=== PATIENT | male | born 1970 | race Caucasian/White ===

== ENCOUNTER 2017-08-28 06:40 | Emergency (ER) | payer BC ==
[~2017-08-28] VITALS: Ht 170.2 cm; Wt 132.7 kg
[~2017-08-28 06:40] MED LIST: ALBUAER2 INH
[2017-08-28 06:44] VITALS: Ht 170.2 cm; Wt 132.7 kg
[2017-08-28] MEDS ORDERED: VNTHFA/IN INH (06:52)
[2017-08-28] MEDS ORDERED: KETOROLAC TROMETHAMINE 30 MG/ML VIAL IV STA (07:05)
[2017-08-28 07:12] VITALS: O2SAT 96
--- NOTE | 2017-08-28 07:19 | DIAGNOSTIC IMAGING REPORT ---
CHEST ONE VIEW PORTABLE CLINICAL HISTORY: Atypical chest pain COMPARISON STUDY: 06/04/2010 FINDINGS: The cardiac and mediastinal contours remain stable. There is no failure. There is no focal pulmonary consolidation. There are no pleural effusions. There is a linear opacity at left lung base consistent with subsegmental atelectasis.[ IMPRESSION: No active disease in the chest. Electronically signed by: Misael Bautista M.D. 08/28/2017 7:18 AM Dictated Date/Time: 08/28/2017 7:17 AM
[2017-08-28 07:29] LABS: BASO % 0.4 %; BASO ABS # 0.03 K/uL (0-0.2); COMPLETE YES; EOS % 3.1 %; HEMATOCRIT 45.9 % (42-52); IG% 0.6 %; LYMPH % 28.1 %; LYMPH ABS # 2.36 K/uL (1.2-3.4); MEAN CELL VOLUME 94.3 fL (80-100); MEAN CORPUSCULAR HEMOGLOBIN 30.8 pg (25-34); MEAN CORPUSCULAR HGB CONC 32.7 g/dl (32-36); NEUT % 61.8 %; PLATELET COUNT 247 K/uL (130-400); RED BLOOD COUNT 4.87 M/uL (4.7-6.1)
[2017-08-28 07:36] LABS: ALT/SGPT 49 U/L (12-78); BLOOD UREA NITROGEN 10 mg/dl (7-18); BUN/CREATININE RATIO 11.9 (10-20); CALCIUM 8.7 mg/dl (8.5-10.1); CARBON DIOXIDE 28 mmol/L (21-32); CHLORIDE 103 mmol/L (98-107); CREATININE 0.88 mg/dl (0.60-1.40); GLUCOSE 134 mg/dl (70-99); SODIUM 138 mmol/L (136-145)
[2017-08-28 07:41] LABS: ALKALINE PHOSPHATASE 72 U/L (45-117); AST/SGOT 19 U/L (15-37)
[2017-08-28] MEDS ORDERED: SODIUM CHLORIDE 0.9% 1000ML 1,000 ML IV STA (07:42)
[2017-08-28] MEDS ORDERED: GI COCKTAIL PO STA (07:48)
[2017-08-28] MEDS ORDERED: ALUMINUM/MAGNESIUM SUSP 30 ML UDC ONE (07:55)
[2017-08-28] MEDS ORDERED: LIDOCAINE HCL 2% VISC SOLN 20 ML UDC ONE (07:55)
--- NOTE | 2017-08-28 08:11 | EMERGENCY ROOM VISIT NOTE ---
History Report prepared by Rodrigue: Saritha Duque Under the Supervision of: Dr. Eliezer Raines M.D. First contact with patient: 06:52 Chief Complaint: CHEST PAIN Stated Complaint: LFT HAND ,DIARRHEA, SEVERE HEARTBURN History of Present Illness The patient is a 47 year old male who presents to the Emergency Room with complaints of intermittent chest pain that began two weeks ago. He currently rates his discomfort as a 5/10 in severity describing his pain as a heaviness. The patient states that the pain today began when he woke and it has been with him all morning. He denies the pain worsening with exertion but states that it does improve sometime with exertion. Symptoms improves with flexion of chest wall/internal rotation/adduction of arms to chest wall. Pain is worsened with extension of the chest wall or palpation of the anterior chest/sternum. The patient states that the pain comes with rest. He additionally reports a chest pain which is different then his current chest pain that he describes as a burning that only comes after eating. The patient states that today he has been feeling short of breath with his current pain which started at 5am. He states that breathing worsens his pain. The patient reports palpitations/ flutter in his chest as well. He states that he additionally has noticed aches and numbness to his bilateral hands and fingertips which improves with lifting his hands over his head. The patient states that he developed diarrhea this morning, noting four bouts of diarrhea. He denies diabetes, hypertension, hyperlipidemia, CAD, history of sudden at a young age, and smoking. Patient denies swelling of calves, recent trips, history of immobilization or recent surgery, prior history of DVT, hemoptysis, history of malignancy, history of smoking, or control/estrogen use. The patient denies headache, change in vision, fevers, nausea, vomiting, pain with urination, and melena. Source of History: patient Onset: two weeks ago Position: chest Symptom Intensity: 5/10 Quality: burning, other (heaviness) Timing: intermittent Modifying Factors (Worsening): rest, eating, breathing Associated Symptoms: + SOB, + numbness (biltaral hands) Review of Systems See HPI for pertinent positives & negatives. A total of 10 systems reviewed and were otherwise negative. Past Medical & Surgical Medical Problems: (1) Kidney stone (2) Tick bite Family History Patient reports no known family medical history. Social History Smoking Status: Never Smoker Alcohol Use: occasionally Drug Use: none Marital Status: Housing Status: lives with family Occupation Status: employed Current/Historical Medications Scheduled PRN Albuterol Hfa (Ventolin Hfa), 2 PUFFS INH Q6H PRN for SOB/Wheezing Allergies Coded Allergies: No Known Allergies (Unverified , 08/28/17) Physical Exam Vital Signs Date Time Temp Pulse Resp B/P (MAP) Pulse Ox O2 Delivery O2 Flow Rate FiO2 08/28/17 09:59 36.4 70 20 119/86 95 08/28/17 09:45 70 20 95 08/28/17 09:31 119/86 08/28/17 09:15 68 15 138/88 98 08/28/17 08:45 69 19 95 08/28/17 08:31 140/99 08/28/17 08:15 74 19 93 08/28/17 08:10 75 17 94 08/28/17 08:01 142/89 08/28/17 07:40 73 17 93 08/28/17 07:31 141/76 08/28/17 07:12 96 Room Air 08/28/17 07:11 96 Room Air 08/28/17 07:10 86 14 94 08/28/17 07:01 148/101 08/28/17 06:55 87 08/28/17 06:52 143/96 08/28/17 06:44 36.4 87 18 158/99 92 Room Air Physical Exam GENERAL: Sitting up in bed, alert, disheveled, well nourished, no distress, non- toxic EYE EXAM: normal conjunctiva. OROPHARYNX: no exudate, no erythema, lips, buccal mucosa, and tongue normal and mucous membranes are moist NECK: supple, no nuchal rigidity, no adenopathy, non-tender CHEST: Reproducible anterior chest wall pain, tracking to the left of the sternum/same as stated complaint. Worsen and improves with movement of upper extremities. LUNGS: Clear to auscultation. Normal chest wall mechanics HEART: no murmurs, S1 normal and S2 normal ABDOMEN: abdomen soft, non-tender, normo-active bowel sounds, no masses, no rebound or guarding. BACK: Back is symmetrical on inspection and there is no deformity, no midline tenderness, no CVA tenderness. SKIN: no rashes and no bruising UPPER EXTREMITIES: upper extremities are grossly normal. Radial pulses equal bilaterally LOWER EXTREMITIES: No pitting edema. Calves are equal bilaterally NEURO EXAM: Normal sensorium, cranial nerves II-XII grossly intact, normal speech, no gross weakness of arms, no gross weakness of legs. Medical Decision & Procedures ER Provider Diagnostic Interpretation: Radiology results as stated below per my review and the radiologist's interpretation: CHEST ONE VIEW PORTABLE CLINICAL HISTORY: Atypical chest pain COMPARISON STUDY: 06/04/2010 FINDINGS: The cardiac and mediastinal contours remain stable. There is no failure. There is no focal pulmonary consolidation. There are no pleural effusions. There is a linear opacity at left lung base consistent with subsegmental atelectasis.[ IMPRESSION: No active disease in the chest. Electronically signed by: Misael Bautista M.D. 08/28/2017 7:18 AM Dictated Date/Time: 08/28/2017 7:17 AM Laboratory Results 08/28/17 06:56 Red Blood Count 4.87, Mean Corpuscular Volume 94.3, Mean Corpuscular Hemoglobin 30.8, Mean Corpuscular Hemoglobin Concent 32.7, Mean Platelet Volume 10.0, Neutrophils (%) (Auto) 61.8, Lymphocytes (%) (Auto) 28.1, Monocytes (%) (Auto) 6.0, Eosinophils (%) (Auto) 3.1, Basophils (%) (Auto) 0.4, Neutrophils # (Auto) 5.20, Lymphocytes # (Auto) 2.36, Monocytes # (Auto) 0.50, Eosinophils # (Auto) 0.26, Basophils # (Auto) 0.03 08/28/17 06:56 Test 08/28/17 06:56 08/28/17 09:10 White Blood Count 8.40 K/uL (4.8-10.8) Red Blood Count 4.87 M/uL (4.7-6.1) Hemoglobin 15.0 g/dL (14.0-18.0) Hematocrit 45.9 % (42-52) Mean Corpuscular Volume 94.3 fL (80-100) Mean Corpuscular Hemoglobin 30.8 pg (25-34) Mean Corpuscular Hemoglobin Concent 32.7 g/dl (32-36) Platelet Count 247 K/uL (130-400) Mean Platelet Volume 10.0 fL (7.4-10.4) Neutrophils (%) (Auto) 61.8 % Lymphocytes (%) (Auto) 28.1 % Monocytes (%) (Auto) 6.0 % Eosinophils (%) (Auto) 3.1 % Basophils (%) (Auto) 0.4 % Neutrophils # (Auto) 5.20 K/uL (1.4-6.5) Lymphocytes # (Auto) 2.36 K/uL (1.2-3.4) Monocytes # (Auto) 0.50 K/uL (0.11-0.59) Eosinophils # (Auto) 0.26 K/uL (0-0.5) Basophils # (Auto) 0.03 K/uL (0-0.2) RDW Standard Deviation 45.8 fL (36.4-46.3) RDW Coefficient of Variation 13.3 % (11.5-14.5) Immature Granulocyte % (Auto) 0.6 % Immature Granulocyte # (Auto) 0.05 K/uL (0.00-0.02) D-Dimer 210 ug/L FEU (0-500) Anion Gap 7.0 mmol/L (3-11) Est Creatinine Clear Calc Drug Dose 139.1 ml/min Estimated GFR () 120.2 Estimated GFR (Non- 103.7 BUN/Creatinine Ratio 11.9 (10-20) Calcium Level 8.7 mg/dl (8.5-10.1) Total Bilirubin 0.4 mg/dl (0.2-1) Direct Bilirubin < 0.1 mg/dl (0-0.2) Aspartate Amino Transf (AST/SGOT) 19 U/L (15-37) Alanine Aminotransferase (ALT/SGPT) 49 U/L (12-78) Alkaline Phosphatase 72 U/L (45-117) Total Protein 7.6 gm/dl (6.4-8.2) Albumin 3.6 gm/dl (3.4-5.0) Lipase 109 U/L (73-393) Troponin I < 0.015 ng/ml (0-0.045) Laboratory results per my review. Medications Administered Medications (Trade) Dose Ordered Sig/Kwabena Route Start Time Stop Time Status Last Admin Dose Admin Ketorolac Tromethamine (Toradol Inj) 30 mg NOW STAT IV 08/28/17 07:05 08/28/17 07:06 DC 08/28/17 07:14 30 MG Sodium Chloride 1,000 ml @ 999 mls/hr Q1H1M STAT IV 08/28/17 07:42 08/28/17 08:42 DC 08/28/17 07:42 999 MLS/HR Miscellaneous Medication (Gi Cocktail) 24 ml NOW STAT PO 08/28/17 07:48 08/28/17 07:49 DC 08/28/17 07:48 24 ML Al Hydroxide/Mg Hydroxide (Maalox Susp) 30 ml STK-MED ONCE .ROUTE 08/28/17 07:55 08/28/17 07:56 DC 08/28/17 07:55 30 ML Lidocaine HCl (Viscous Lidocaine 2% Soln) 20 ml STK-MED ONCE .ROUTE 08/28/17 07:55 08/28/17 07:56 DC 08/28/17 07:55 20 ML ECG Indication: chest pain Rate (beats per minute): 91 Rhythm: sinus rhythm Findings: PVC, no ectopy, other (normal intervals) ED Course ED COURSE: Vital signs were reviewed and showed hypertensive The patients medical record was reviewed The above diagnostic studies were performed and reviewed. ED treatments and interventions as stated above. 0656: The patient was evaluated in room A10. A complete history and physical examination was performed. 0705: Ordered Toradol Inj 30 mg IV. 0742: Ordered Sodium Chloride 1000 ml @ 999 mls/hr IV. 0748: Ordered GI Cocktail 24 ml PO. 0943: Upon reevaluation, the patient is resting without pain unless his chest is pushed on or he moves his arms.I discussed my findings with the patient and he understands and agrees with the treatment plan. Based on the patients age, coexisting illnesses, exam and lab findings the decision to treat as an outpatient was made. The patient remained stable while under my care. The patient appeared well at the time of discharge. Medical Decision Differential diagnoses includes but is not limited to acute coronary syndrome, myocardial infarction, pericarditis, pulmonary embolus, aortic dissection, pneumonia, pneumothorax, musculoskeletal, shingles, esophageal. Patient is a 47-year-old male who presents to ER for midsternal chest pain. Pain is reproducible per patient and on exam. It improves with internal rotation/adduction of upper extremities and worsens with abduction/external rotation and extension of the chest wall. Has mild paresthesias bilateral arms intermittently as well which improves with raising arms above head. Symptoms also improved with exertion and are only present with rest. No recent trauma. EKG nonischemic. Chest x-ray unremarkable. Troponins negative 2. D-dimer was negative. Heart score is a low risk. CBC along with BMP, LFTs, bilirubin and lipase is negative. With his clearly reproducible anterior chest wall pain which is worsens with changing positions he was given IV Toradol and had complete resolution of his pain. He was discharged follow-up with PCP. Discussed with Pt concerning signs and symptoms to watch out for. Pt was instructed to follow up with their PCP and discussed with the patient their option to return to the ED at anytime for persistent or worsening symptoms. The appropriate anticipatory guidance and out-patient management, including indications for return to the emergency department, were explained at length to the patient and understood. Medication Reconcilliation Current Medication List: was personally reviewed by me Blood Pressure Screening Patient's blood pressure: Elevated blood pressure Blood pressure disposition: Elevated BP felt to be situational, Did not require urgent referral Impression Primary Impression: Chest wall pain Additional Impression: Diarrhea Scribe Attestation The scribe's documentation has been prepared under my direction and personally reviewed by me in its entirety. I confirm that the note above accurately reflects all work, treatment, procedures, and medical decision making performed by me. Departure Information Dispostion Home / Self-Care Referrals Brice Trujillo III, M.D. (PCP) Forms Call Back Authorization, HOME CARE DOCUMENTATION FORM, IMPORTANT VISIT INFORMATION Patient Instructions ED Chest Pain Costochondritis, My [facility] Additional Instructions Please follow up with your primary care doctor with in the next 24 hours. Any worsening of your symptoms, please return to the ED immediately. This includes any fevers greater than 100.4, worsening pain, chest pain, passing out, shortness breath, persistent nausea, vomiting, unable to eat or drink, or any other concerning signs or symptoms from your standpoint. Please take Tylenol or Motrin as needed for the pain. Problem Qualifiers Additional Impression: Diarrhea Diarrhea type: unspecified type Qualified Codes: R19.7 - Diarrhea, unspecified
[2017-08-28 09:59] VITALS: BP 119/86; PULSE 70; TEMP 36.4; O2SAT 95
== END 2017-08-28 10:00 | disposition home or self-care (01) ==
LOC: C.EDB 06:42 → C.EDA 10:00
DX: R07.89 Other chest pain (principal); R19.7 Diarrhea, unspecified; Z87.442 Personal history of urinary calculi

== ENCOUNTER 2018-05-06 04:29 | Emergency (ER) | payer BC ==
[~2018-05-06] VITALS: Ht 170.2 cm; Wt 88.7 kg
[~2018-05-06 04:29] MED LIST changes: -ALBUAER2 INH; +VNTHFA/IN INH
[2018-05-06 04:35] VITALS: TEMP 36.3; Ht 170.2 cm; Wt 88.7 kg
[2018-05-06] MEDS ORDERED: FAMOTIDINE 20MG/5ML IV PUSH IV STA (04:43)
[2018-05-06] MEDS ORDERED: LIDOCAINE HCL 2% VISC SOLN 20 ML UDC PO STA (04:43)
[2018-05-06] MEDS ORDERED: ALUMINUM/MAGNESIUM SUSP 30 ML UDC PO STA (04:43)
[2018-05-06] MEDS ORDERED: DEXAMETHASONE **PF** INJ 10 MG/ML VIAL IV ONE (04:45)
[2018-05-06] MEDS ORDERED: DiphenhydrAMINE HCL 50 MG/ML VIAL IV STA (04:45)
[2018-05-06] MEDS ORDERED: SODIUM CHLORIDE 0.9% 1000ML 1,000 ML IV STA (04:58)
[2018-05-06 05:02] LABS: BASO % 0.1 %; BASO ABS # 0.01 K/uL (0-0.2); EOS % 1.1 %; EOS ABS # 0.12 K/uL (0-0.5); HEMATOCRIT 50.1 % (42-52); HEMOGLOBIN 16.9 g/dL (14.0-18.0); IG# 0.02 K/uL (0.00-0.02); LYMPH % 23.9 %; LYMPH ABS # 2.59 K/uL (1.2-3.4); MEAN CELL VOLUME 89.8 fL (80-100); MEAN CORPUSCULAR HEMOGLOBIN 30.3 pg (25-34); MEAN CORPUSCULAR HGB CONC 33.7 g/dl (32-36); MEAN PLATELET VOLUME 9.5 fL (7.4-10.4); MONO % 4.3 %; MONO ABS # 0.47 K/uL (0.11-0.59); NEUT % 70.4 %; NEUT ABS # 7.61 K/uL (1.4-6.5); PLATELET COUNT 294 K/uL (130-400); RED CELL DISTRIBUTION WIDTH CV 12.7 % (11.5-14.5); RED CELL DISTRIBUTION WIDTH SD 41.3 fL (36.4-46.3); WHITE BLOOD COUNT 10.82 K/uL (4.8-10.8)
[2018-05-06 05:03] VITALS: O2SAT 99
[2018-05-06 05:33] LABS: ALBUMIN 3.8 gm/dl (3.4-5.0); ALKALINE PHOSPHATASE 73 U/L (45-117); ALT/SGPT 21 U/L (12-78); AST/SGOT 10 U/L (15-37); BLOOD UREA NITROGEN 20 mg/dl (7-18); CALCIUM 8.5 mg/dl (8.5-10.1); CARBON DIOXIDE 28 mmol/L (21-32); CREATININE 0.86 mg/dl (0.60-1.40); GLUCOSE 135 mg/dl (70-99); LIPASE 83 U/L (73-393); POTASSIUM 3.6 mmol/L (3.5-5.1); SODIUM 139 mmol/L (136-145); TOTAL PROTEIN 7.3 gm/dl (6.4-8.2)
[2018-05-06] MEDS ORDERED: EPINEPHRINE ADULT AUTO-INJECT 0.3 MG SYR IM STA (05:39)
--- NOTE | 2018-05-06 06:47 | EMERGENCY ROOM VISIT NOTE ---
History First contact with patient: 04:39 Chief Complaint: RASH Stated Complaint: HIVES,DIZZINESS History of Present Illness The patient is a 47 year old male who presents to the Emergency Room with complaints of hives and lightheadedness for the past few hours that woke him up out of sleep. Patient got lightheaded and vomited. He then came here. Patient complains of mid epigastric discomfort described as a burning sensation 5 out of 10. It does not radiate. Patient denies chest pain, dyspnea, diarrhea , back pain, leg pain or swelling, numbness, tingling, localized weakness, throat tightness, feeling of impending doom. No new food soaps or detergents. No history of anaphylaxis. Review of Systems An 10 system review of systems was completed with positives and pertinent negatives listed in the HPI. Past Medical/Surgical History Medical Problems: (1) Kidney stone (2) Tick bite Family History Patient reports no known family medical history. Social History Smoking Status: Never Smoker Alcohol Use: occasionally Drug Use: none Marital Status: Housing Status: lives with family Occupation Status: employed Current/Historical Medications Scheduled Prednisone (Prednisone), 50 MG PO DAILY Scheduled PRN Albuterol Hfa (Ventolin Hfa), 2 PUFFS INH Q6H PRN for SOB/Wheezing Physical Exam Vital Signs Date Time Temp Pulse Resp B/P (MAP) Pulse Ox O2 Delivery O2 Flow Rate FiO2 05/06/18 06:30 65 19 114/69 96 05/06/18 06:00 69 20 119/74 96 05/06/18 05:55 57 19 115/67 97 Room Air 67 110/76 86 105/68 05/06/18 05:30 60 18 105/61 100 05/06/18 05:04 58 05/06/18 05:03 99 Room Air 05/06/18 05:01 65 20 100/70 99 05/06/18 04:35 36.3 72 18 82/54 96 Room Air Physical Exam VITALS: Vitals are noted on the nurse's note and reviewed by myself. Vital signs stable. GENERAL: Pleasant male, in no acute distress, nondiaphoretic, well-developed well-nourished. SKIN: Diffuse erythematous blanchable dermatitis most consistent with allergic reaction. The rest of the skin was without rashes, erythema, edema, or bruising. There is no tenting of the skin. Capillary reflex less than 2 seconds. HEAD: Normocephalic atraumatic. Face: No facial edema. No airway compromise. EARS: External auditory canals clear, tympanic membranes pearly odonnell without erythema or effusion bilaterally. EYES: Pupils equal round and reactive to light and accommodation. Conjunctivae without injection, sclerae without icterus. Extraocular movements intact. NOSE: Patent, turbinates without inflammation or discharge. MOUTH: Mucous membranes mildly dry pharynx without erythema or exudate. Uvula midline. Airway patent. Tongue does not deviate. NECK: Supple without nuchal rigidity. No lymphadenopathy. No thyromegaly. Cervical spine is nontender. No JVD. HEART: Regular rate and rhythm without murmurs gallops or rubs. LUNGS: Clear to auscultation bilaterally without wheezes, rales or rhonchi. No retractions or accessory muscle use. ABDOMEN: Positive bowel sounds x 4. Normal tympanic percussion. Soft, nontender, without masses or organomegaly. Ballesteros sign negative. No guarding or rebound tenderness. No CVA tenderness MUSCULOSKELETAL: No muscle atrophy, erythema, or edema noted. NEURO: Patient was alert and oriented to person place and time. Normal sensation to light and sharp touch. No focal neurological deficits. Medical Decision & Procedures Laboratory Results 05/06/18 04:50 Red Blood Count 5.58, Mean Corpuscular Volume 89.8, Mean Corpuscular Hemoglobin 30.3, Mean Corpuscular Hemoglobin Concent 33.7, Mean Platelet Volume 9.5, Neutrophils (%) (Auto) 70.4, Lymphocytes (%) (Auto) 23.9, Monocytes (%) (Auto) 4.3, Eosinophils (%) (Auto) 1.1, Basophils (%) (Auto) 0.1, Neutrophils # (Auto) 7.61, Lymphocytes # (Auto) 2.59, Monocytes # (Auto) 0.47, Eosinophils # (Auto) 0.12, Basophils # (Auto) 0.01 05/06/18 04:50 Test 05/06/18 04:50 05/06/18 06:32 White Blood Count 10.82 K/uL (4.8-10.8) Red Blood Count 5.58 M/uL (4.7-6.1) Hemoglobin 16.9 g/dL (14.0-18.0) Hematocrit 50.1 % (42-52) Mean Corpuscular Volume 89.8 fL (80-100) Mean Corpuscular Hemoglobin 30.3 pg (25-34) Mean Corpuscular Hemoglobin Concent 33.7 g/dl (32-36) Platelet Count 294 K/uL (130-400) Mean Platelet Volume 9.5 fL (7.4-10.4) Neutrophils (%) (Auto) 70.4 % Lymphocytes (%) (Auto) 23.9 % Monocytes (%) (Auto) 4.3 % Eosinophils (%) (Auto) 1.1 % Basophils (%) (Auto) 0.1 % Neutrophils # (Auto) 7.61 K/uL (1.4-6.5) Lymphocytes # (Auto) 2.59 K/uL (1.2-3.4) Monocytes # (Auto) 0.47 K/uL (0.11-0.59) Eosinophils # (Auto) 0.12 K/uL (0-0.5) Basophils # (Auto) 0.01 K/uL (0-0.2) RDW Standard Deviation 41.3 fL (36.4-46.3) RDW Coefficient of Variation 12.7 % (11.5-14.5) Immature Granulocyte % (Auto) 0.2 % Immature Granulocyte # (Auto) 0.02 K/uL (0.00-0.02) Anion Gap 7.0 mmol/L (3-11) Est Creatinine Clear Calc Drug Dose 115.3 ml/min Estimated GFR () 121.4 Estimated GFR (Non- 104.7 BUN/Creatinine Ratio 23.7 (10-20) Calcium Level 8.5 mg/dl (8.5-10.1) Total Bilirubin 0.6 mg/dl (0.2-1) Direct Bilirubin 0.1 mg/dl (0-0.2) Aspartate Amino Transf (AST/SGOT) 10 U/L (15-37) Alanine Aminotransferase (ALT/SGPT) 21 U/L (12-78) Alkaline Phosphatase 73 U/L (45-117) Troponin I < 0.015 ng/ml (0-0.045) Total Protein 7.3 gm/dl (6.4-8.2) Albumin 3.8 gm/dl (3.4-5.0) Lipase 83 U/L (73-393) Bedside Troponin I < 0.030 ng/ml (0-0.045) Medications Administered Medications (Trade) Dose Ordered Sig/Kwabena Route Start Time Stop Time Status Last Admin Dose Admin Lidocaine HCl (Viscous Lidocaine 2% Soln) 10 ml NOW STAT PO 05/06/18 04:43 05/06/18 04:45 DC 05/06/18 04:58 10 ML Al Hydroxide/Mg Hydroxide (Maalox Susp) 30 ml NOW STAT PO 05/06/18 04:43 05/06/18 04:45 DC 05/06/18 04:57 30 ML Famotidine (Pepcid 20mg Iv Push) 20 mg ONE STAT IV 05/06/18 04:43 05/06/18 04:45 DC 05/06/18 04:55 20 MG Diphenhydramine HCl (Benadryl Inj) 50 mg NOW STAT IV 05/06/18 04:45 05/06/18 04:46 DC 05/06/18 04:55 50 MG Dexamethasone Sodium Phosphate (Dexamethasone Inj Pf) 10 mg NOW ONCE IV 05/06/18 04:45 05/06/18 04:46 DC 05/06/18 04:55 10 MG Sodium Chloride 1,000 ml @ 999 mls/hr Q1H1M STAT IV 05/06/18 04:58 05/06/18 05:58 DC 05/06/18 05:07 999 MLS/HR ED Course Prior records/ancillary studies reviewed. Triage Nursing notes reviewed. Additional history obtained from family The patient's history was concerning for abdominal pain with rash. Differential diagnosis: Etiologies such as allergic reaction, anaphylaxis, appendicitis, diverticulitis , PUD, biliary pathology, UTI, pancreatitis, obstruction, mesenteric ischemia, aortic pathology, infections, inflammatory bowel disease, renal colic, as well as others were entertained. Physical examination findings: As above. ER treatment provided: GI cocktail, Pepcid, Decadron, Benadryl On reassessment the patient felt better. Diagnostics interpreted by me: ECG: Normal sinus, normal intervals, no acute ST-T wave changes. Impression normal sinus rhythm interpreted by myself I think arrhythmia is unlikely. EKG shows normal sinus rhythm with no interval abnormalities such as QT prolongation or WPW. There are no findings to suggest Brugada syndrome. Cardiac monitoring in the emergency department reveals no tachycardic or bradycardic dysrhythmia. Hypertrophic cardiomyopathy was considered but there are no clear historical elements pointing toward this. EKG is not suggestive. The QRS voltage is not extremely large and there are no suggestive Q waves. The labs revealed no anemia. Mild hyperglycemia without DKA Negative troponin 2 Imaging studies: Chest x-ray with no acute consolidation, pneumothorax free of my interpretation HEART SCORE: Hx: high/mod/low suspicion: 0 ECG: ST depression/nonspecific changes/normal: 0 Age: Greater than 65/45-64/less than 45: 1 Risk factors: (Hypertension, hyperlipidemia, diabetes, coronary disease, tobacco use, cocaine use): 0 Troponin: Greater than 2 times normal limits/1-2 times normal limits/normal: 0 Total: 1 Exam and history seem consistent with allergic reaction. Patient felt much better to be medicated as above. No other acute findings are noted. He did not have acute abdomen on exam. Repeat abdominal exam showed no tenderness. He is tolerating fluids. He is advised to take medications as directed, rest, stay well-hydrated and follow-up in a day or 2 with family care here in the ER sooner for chest pain, difficulty breathing, abdominal pain, worsening signs or symptoms or as needed. By the evaluation outlined above emergent etiologies such as appendicitis, diverticulitis, PUD, biliary pathology, UTI, pancreatitis, obstruction, mesenteric ischemia, aortic pathology, infections, inflammatory bowel disease, renal colic, as well as others were deemed relatively unlikely. Patient was informed to follow-up with his family care doctor for elevated blood sugar today. The pt informed about the findings as listed above. All questions were answered and pleased with the treatment. Return instructions were outlined and the patient was discharged in stable condition. Outpatient prescription management: Prednisone Referral: The patient was referred back to their primary care physician for follow-up in 2 to 3 days for a recheck of the current condition. Case reviewed with my attending The chart was completed utilizing [employer] voice recognition software. Grammatical errors, random word insertions, pronoun errors, and incomplete sentences are an occassional consequence of this system due to software limitations, ambient noise, and hardware issues. Any formal questions or concerns about the content, text, or information contained within the body of this dictation should be directly addressed to the physician captain's assistant for clarification. Medical Decision As above Medication Reconcilliation Current Medication List: was personally reviewed by me Blood Pressure Screening Patient's blood pressure: Normal blood pressure Impression Primary Impression: Allergic reaction Additional Impressions: Epigastric pain Hyperglycemia Departure Information Dispostion Home / Self-Care Condition GOOD Prescriptions Prednisone (Prednisone) 50 Mg Tab 50 MG PO DAILY for 4 Days, #4 TAB Prov: Anisa Schroeder .CHERYL 05/06/18 Referrals Brice Trujillo III, M.D. (PCP) Patient Instructions My [facility] Additional Instructions DO NOT drive, drink alcohol, operate machinery, or perform dangerous activities today. You were given medications in the ER that can affect your ability to safely function or operate a vehicle. Your blood sugar was slightly elevated today. Follow-up with family care doctor for this. Epi-Pen: Use one injection as instructed for severe allergic reactions associated with shortness of breath, difficulty breathing, or throat or tongue swelling. If you use this injection call 911 or proceed immediately to the nearest Emergency Room. Prednisone 50mg: Once daily until the prescription is finished. It is best to take this earlier in the day as some patients note occasional difficulty falling asleep when taken in the late evening. Diphenhydramine(Benadryl) 25mg: use 25 to 50 mg every six hours for swelling, itching, or hives. This medication is sedating and will cause drowsiness. Avoid alcohol, operating machinery or dangerous equipment, working on ladders or roofs, DRIVING, or situations where being under the influence may be dangerous. Zantac 75: Take two pills twice a day along with Benadryl as needed for swelling , itching, or hives. Most people know this for its affect on the stomach, but it also acts similar to, but less potent than Benadryl for allergic reactions. Both the Benadryl and the Zantac are available [id number]. Continue current medications. Return to the emergency department for worsening of your rash, chest pain, swelling of your face, lips, tongue, or throat, difficulty breathing, vomiting, or as needed. Follow-up with your primary care physician in 2 to 3 days for a recheck of your current condition. Problem Qualifiers Primary Impression: Allergic reaction Encounter type: initial encounter Qualified Codes: T78.40XA - Allergy, unspecified, initial encounter
[2018-05-06] MEDS ORDERED: PRED50TA PO (06:48)
--- NOTE | 2018-05-06 06:53 | DIAGNOSTIC IMAGING REPORT ---
CHEST ONE VIEW PORTABLE CLINICAL HISTORY: Atypical chest pain COMPARISON STUDY: 08/28/2017 FINDINGS: The cardiac and mediastinal contours are normal. There is no evidence of focal pulmonary consolidation. There is no evidence of failure. No pleural effusions are visualized.[ IMPRESSION: No active disease in the chest. Electronically signed by: Misael Bautista M.D. 05/06/2018 6:51 AM Dictated Date/Time: 05/06/2018 6:51 AM
[2018-05-06 07:00] VITALS: BP 103/71; PULSE 68; O2SAT 97
== END 2018-05-06 07:30 | disposition home or self-care (01) ==
LOC: C.EDB 04:30
DX: T78.40XA Allergy, unspecified, initial encounter (principal); X58.XXXA Exposure to other specified factors, initial encounter; R10.13 Epigastric pain; R73.9 Hyperglycemia, unspecified